=== PATIENT | male | born 1945 | race Caucasian/White ===

== ENCOUNTER → 2019-07-19 15:19 | Outpatient (CLI) | payer MEDICARE, OTHER, SELFPAY ==
[2019-07-19 16:44] LABS: PSA,Total- Diagnostic 7.75 ng/mL (0.0-4.0)
== END ==
PROVIDERS: PCP Student in an Organized Health Care Education/Training Program; Referring Provider Urology; Visit Provider Urology
DX: R97.20 Elevated prostate specific antigen [PSA] (principal)
CPT/HCPCS: 36415; 84153